=== PATIENT | female | born 1940 | race Caucasian/White ===

== ENCOUNTER 2017-08-30 09:15 | Inpatient (IN) | payer OTHER ==
--- NOTE | 2017-08-30 09:31 | PDOC ---
History of Present Illness - General History Source: Patient Exam Limitations: No Limitations - History of Present Illness Initial Comments: 08/30/17 10:00 Patient is a 77 year old female with a significant past medical history of HTN, Hyperlipidemia, Anticoagulant usage, who presents to the ED with complaints of vomiting blood that began last night. As per daughter in law patient began vomiting bright red blood last night suddenly. Patient reports experiencing episodes of chest pain and dizziness secondary to vomiting blood. She reports experiences multiple episodes of burgundy stool. Patient states she takes tylenol almost every day. Patient reports having no hx of gastrointestinal bleeding. Denies fever, chills. Denies nausea. Denies dysuria. Denies any other symptoms. Allergies Social history: No smoking. No alcohol. No illicit drugs. Surgical history: Endoscopy PMD: Dr. Riaz Hiceky. <Td Krishnan - Last Filed: 08/30/17 11:25> <Cande Cabrales - Last Filed: 08/30/17 11:31> - General Chief Complaint: Vomiting Blood Stated Complaint: VOMITING Time Seen by Provider: 08/30/17 09:24 Past History <Td Krishnan - Last Filed: 08/30/17 11:25> - Past Medical History Cardiac Disorders: Yes (?) HTN: Yes Hypercholesterolemia: Yes - Surgical History Cholecystectomy: Yes - Suicide/Smoking/Psychosocial Hx Smoking History: Never smoked Hx Alcohol Use: No Drug/Substance Use Hx: No Substance Use Type: None <Cande Cabrales - Last Filed: 08/30/17 11:31> - Past Medical History Allergies/Adverse Reactions: Allergies Allergy/AdvReac Type Severity Reaction Status Date / Time No Known Allergies Allergy Verified 08/30/17 10:09 Home Medications: Ambulatory Orders Cholecalciferol (Vitamin D3) [Vitamin D3 -] 0 unit PO WEEKLY 08/30/17 Ezetimibe [Zetia -] 10 mg PO DAILY 08/30/17 Nebivolol [Bystolic -] 10 mg PO DAILY 08/30/17 Review of Systems - Review of Systems Able to Perform ROS?: Yes Comments:: 08/30/17 10:00 GENERAL/CONSTITUTIONAL: No fever or chills. No weakness. HEAD, EYES, EARS, NOSE AND THROAT: No change in vision. No ear pain or discharge. No sore throat. GASTROINTESTINAL: No nausea, vomiting, diarrhea or constipation. GENITOURINARY: No dysuria, frequency, or change in urination. CARDIOVASCULAR: No chest pain or shortness of breath. RESPIRATORY: No cough, wheezing, or hemoptysis. MUSCULOSKELETAL: No joint or muscle swelling or pain. No neck or back pain. SKIN: No rash NEUROLOGIC: No headache, vertigo, loss of consciousness, or change in strength/ sensation. ENDOCRINE: No increased thirst. No abnormal weight change. HEMATOLOGIC/LYMPHATIC: No anemia, easy bleeding, or history of blood clots. ALLERGIC/IMMUNOLOGIC: No hives or skin allergy. All Other Systems: Reviewed and Negative <Td Krishnan - Last Filed: 08/30/17 11:25> *Physical Exam - Vital Signs Last Vital Signs Temp Pulse Resp BP Pulse Ox 97.8 F 73 20 140/58 100 08/30/17 09:18 08/30/17 09:18 08/30/17 09:18 08/30/17 09:18 08/30/17 09:18 - Physical Exam Comments: 08/30/17 10:00 GENERAL: +Near Syncope. +General pale coloration. Awake, alert, and fully oriented, HEAD: No signs of trauma EYES: +Pale Conjunctiva PERRLA, EOMI, sclera anicteric, ENT: Auricles normal inspection, hearing grossly normal, nares patent, oropharynx clear without exudates. Moist mucosa NECK: Normal ROM, supple, no lymphadenopathy, JVD, or masses LUNGS: Breath sounds equal, clear to auscultation bilaterally. No wheezes, and no crackles HEART: Regular rate and rhythm, normal S1 and S2, no murmurs, rubs or gallops ABDOMEN: +Diffuse Upper quadrant epigastric tenderness. Soft, nontender, normoactive bowel sounds. No guarding, no rebound. No masses BUTTOCK: +One small external hemorrhoid. +Black stool. EXTREMITIES: Normal range of motion, no edema. No clubbing or cyanosis. No cords, erythema, or tenderness NEUROLOGICAL: Cranial nerves II through XII grossly intact. Normal speech, normal gait SKIN: Warm, Dry, normal turgor, no rashes or lesions noted. <Td Krishnan - Last Filed: 08/30/17 11:25> - Vital Signs Last Vital Signs Temp Pulse Resp BP Pulse Ox 97.8 F 73 20 140/58 100 08/30/17 09:18 08/30/17 09:18 08/30/17 09:18 08/30/17 09:18 08/30/17 09:18 <Cande Cabrales - Last Filed: 08/30/17 11:31> Heart Score/ECG Review - ECG Intrepretation Comment:: 08/30/17 09:57 sinus at 70, nl axis, nl interval, t wave flattening, no acute changes <Cande Cabrales - Last Filed: 08/30/17 11:31> ED Treatment Course - LABORATORY CBC & Chemistry Diagram: 08/30/17 09:35 08/30/17 09:35 - ADDITIONAL ORDERS Additional order review: 08/30/17 09:35 RBC 3.18 L MCV 90.3 MCHC 32.9 RDW 13.7 MPV 9.0 Neutrophils % 82.2 Lymphocytes % 13.4 Monocytes % 4.1 Eosinophils % 0.1 Basophils % 0.2 <Td Krishnan - Last Filed: 08/30/17 11:25> - LABORATORY CBC & Chemistry Diagram: 08/30/17 09:35 08/30/17 09:35 <Cande Cabrales - Last Filed: 08/30/17 11:31> Medical Decision Making - Medical Decision Making 08/30/17 11:[address] Jenkins @10:54am. Awaiting call back. Over head paged Dr. Jenkins, second page @11:23am. Awaiting call back. Called Dr. Thaddeus Lucas @11:28am. Awaiting call back. <Td Krishnan - Last Filed: 08/30/17 11:25> - Critical Care Time Total Critical Care Time (minutes): 30 Critical Care Statement: The care of this patient involved high complexity decision making to prevent further life threatening deterioration of the patient 's condition and/or to evaluate & treat vital organ system(s) failure or risk of failure. - Medical Decision Making 08/30/17 09:50 a/p: 77yo female with epigastric pain, hematemesis x multiple episodes last night and melena today -concern for UGIB most likely from gastritis/ulcer -labs -lactate -type and screen -npo -ivf hydration -ekg -protonix -will need admission and GI eval. 08/30/17 11:19 family updated on the plan, per the son, who is at the bedside, the patient has seen Dr. Lucas in the past from GI. call placed to Dr. Jenkins 08/30/17 11:[address] Jenknis who accepts the patient to his service. NPO status. <Cande Cabrales - Last Filed: 08/30/17 11:31> *DC/Admit/Observation/Transfer - Attestations Scribe Attestion: 08/30/17 10:01 Documentation prepared by Td Krishnan, acting as neuropsychology medical consultant for Cande Cabrales DO. <Td Krishnan - Last Filed: 08/30/17 11:25> - Discharge Dispostion Admit: Yes - Attestations Physician Attestion: 08/30/17 11:30 I, Dr. Cande Cabrales DO, attest that this document has been prepared under my direction and personally reviewed by me in its entirety. I further attest, that it accurately reflects all work, treatment, procedures and medical decision -making performed by me. <Cande Cabrales - Last Filed: 08/30/17 11:31> Diagnosis at time of Disposition: Upper gastrointestinal bleeding - Discharge Dispostion Condition at time of disposition: Guarded
[2017-08-30] MEDS ORDERED: ONDANSETRON 4 MG/2 ML VIAL IVPUSH ONE (09:47)
[2017-08-30] MEDS ORDERED: PANTOPRAZOLE SODIUM 80 MG in SODIUM CHLORIDE 100 ML IVPB ONE (09:47)
[2017-08-30] MEDS ORDERED: SODIUM CHLORIDE 0.9% 1000 ML INFUS.BAG IV ONE (09:47)
[2017-08-30 09:49] LABS: BASOPHIL 0.2 % (0-2.0); EOSINOPHIL 0.1 % (0-4.5); MCH 29.7 pg (25.7-33.7); MCHC 32.9 g/dl (32.0-36.0); MEAN CELL VOLUME 90.3 fl (80-96); NEUTROPHILS 82.2 % (42.8-82.8); PLATELET COUNT 288 K/MM3 (134-434); RDW 13.7 % (11.6-15.6); WHITE BLOOD COUNT 11.1 K/mm3 (4.0-10.0)
[2017-08-30] MEDS ORDERED: PANTOPRAZOLE SODIUM 200 ML IVPB ONE (09:54)
[2017-08-30 10:11] LABS: ALBUMIN 3.6 g/dl (3.4-5.0); ANION GAP 6 (8-16); BILIRUBIN,TOTAL 0.2 mg/dL (0.2-1.0); CALCIUM 8.8 mg/dL (8.5-10.1); CO2 27 mmol/L (21-32); CREATININE 1.3 mg/dL (0.55-1.02); GLUCOSE,RANDOM 115 mg/dL (74-106); MAGNESIUM 1.9 mg/dL (1.8-2.4); SGOT/AST 10 U/L (15-37); SGPT/ALT 17 U/L (12-78)
[2017-08-30 10:14] LABS: ALK PHOS 65 U/L (45-117); CPK 66 IU/L (26-192); TROPONIN I < 0.02 ng/ml (0.00-0.05)
[2017-08-30 10:24] LABS: INR 1.26 (0.82-1.09); PROTHROMBIN TIME (PATIENT) 13.9 SEC (9.98-11.88)
[2017-08-30 10:26] LABS: ACTIVATED PTT 30.2 SECONDS (26.9-34.4)
--- NOTE | 2017-08-30 13:06 | EKG ---
Test Reason : Blood Pressure : / mmHG Vent. Rate : 070 BPM Atrial Rate : 070 BPM P-R Int : 146 ms QRS Dur : 082 ms QT Int : 426 ms P-R-T Axes : 057 007 039 degrees QTc Int : 460 ms NORMAL SINUS RHYTHM POSSIBLE LEFT ATRIAL ENLARGEMENT LOW VOLTAGE QRS BORDERLINE ECG NO PREVIOUS ECGS AVAILABLE Confirmed by JULIA STILL MD ([id number]) on 08/30/2017 1:06:01 PM Referred By: Confirmed By:JULIA STILL MD
[2017-08-30 13:52] VITALS: BMI 28.5
[2017-08-30] MEDS ORDERED: FLU VACCINE QUAD 60 MCG/0.5 ML (MDV 17-18) IM ONE (15:00)
[2017-08-30] MEDS: DEXTROSE 5%-NORMAL SALINE 1,000 ML IV SCH (15:50)
[2017-08-30] MEDS ORDERED: ACETAMINOPHEN 650 MG SUPP.RECT PR PRN (17:12)
[2017-08-30] MEDS ORDERED: ONDANSETRON 4 MG/2 ML VIAL IVPUSH PRN (17:12)
--- NOTE | 2017-08-30 19:16 | CON.GI ---
Consult Consult Specialty:: GI Referred by:: Dr Hill Reason for Consultation:: hematemesis - History of Present Illness Chief Complaint: hematemesis History of Present Illness: 77 F with h/o HTN, HLD admitted with hematemesis x 24 hours. Patient states she awoke from sleep and ran to the toilet and "filled it with blood" She denies abdominal pain. On admission she had Hgb 9.4 and an INR of 1.26. She is on ASA 81 wihch she states she only takes when she remembers. She states she had some chest discomfort and lightheaded sensation. She is comfortable and is no longer bleeding - History Source History Provided By: Patient Limitations to Obtaining History: Language Barrier (electrostatic painter present (Nurse)) - Past Medical History Cardio/Vascular: Yes: HTN, Hyperlipdemia ...: No - Alcohol/Substance Use Hx Alcohol Use: No - Smoking History Smoking history: Never smoked Home Medications - Allergies Allergies/Adverse Reactions: Allergies Allergy/AdvReac Type Severity Reaction Status Date / Time No Known Allergies Allergy Verified 08/30/17 10:09 - Home Medications Home Medications: Ambulatory Orders Acetaminophen [Tylenol .Extra-Strength -] 500 mg PO PRN PRN 08/30/17 Aspirin [ASA -] 81 mg PO DAILY 08/30/17 Cholecalciferol (Vitamin D3) [Vitamin D3 -] 0 unit PO WEEKLY 08/30/17 Ezetimibe [Zetia -] 10 mg PO DAILY 08/30/17 Nebivolol [Bystolic -] 10 mg PO DAILY 08/30/17 Physical Exam-GI Vital Signs: Vital Signs Temperature 98.6 F 08/30/17 13:51 Pulse Rate 75 08/30/17 13:51 Respiratory Rate 20 08/30/17 13:51 Blood Pressure 129/67 08/30/17 13:51 O2 Sat by Pulse Oximetry (%) 100 08/30/17 09:18 Constitutional: Yes: Well Nourished, No Distress HENT: Yes: Normocephalic Cardiovascular: Yes: Regular Rate and Rhythm Respiratory: Yes: CTA Bilaterally Labs: INR, PTT INR 1.26 (0.82-1.09) H 08/30/17 09:35 Assessment/Plan 77 F sp/sp admitted with presumed UGIB with elevated BUN and mildly deranged INR. Liekly etiology Teresa Banks tear. No bleeding at this time and hemodynamically stable,. No urgent endoscopy necessary but will do EGD in AM to better assess For now, protonix drip Stat CBC and transfuse 1 unit of Hgb <8 U/S abdomen as it is not clear why she has elevated INR. Repeat now. If elevated give 2 units of FFP. I did colon/EGD on her 5 years ago-will check office records.
[2017-08-30 21:44] LABS: INR 1.27 (0.82-1.09)
[2017-08-30 22:02] LABS: MCH 30.1 pg (25.7-33.7); MCHC 33.4 g/dl (32.0-36.0); MEAN CELL VOLUME 90.2 fl (80-96); MEAN PLT VOLUME 9.3 fl (7.5-11.1); PLATELET COUNT 231 K/MM3 (134-434); RDW 13.6 % (11.6-15.6); WHITE BLOOD COUNT 7.7 K/mm3 (4.0-10.0)
--- NOTE | 2017-08-31 08:35 | PN ---
Progress Note (short form) - Note Progress Note: ADDENDUM: S/P EGD Ulcerated mass noted on angulus No active bleeding Biopsies taken. Suspect malignancy Rec: Protonix 40 BID FFP 2 units now as INR still mildly deranged Surgery consult Oncology consult Clear liquid diet CT chest/abdomen/pelvis ordered IV fluid hydration
[2017-08-31] MEDS ORDERED: PANTOPRAZOLE SODIUM 40 MG in SODIUM CHLORIDE 100 ML IVPB SCH (10:00)
[2017-08-31 10:01] LABS: BASOPHIL 0.5 % (0-2.0); EOSINOPHIL 1.3 % (0-4.5); MCH 30.5 pg (25.7-33.7); MCHC 33.5 g/dl (32.0-36.0); MEAN CELL VOLUME 90.9 fl (80-96); MEAN PLT VOLUME 9.1 fl (7.5-11.1); PLATELET COUNT 227 K/MM3 (134-434); RDW 13.9 % (11.6-15.6); WHITE BLOOD COUNT 7.6 K/mm3 (4.0-10.0)
[2017-08-31] MEDS ORDERED: PT OWN MED DRAWER 7, Y5N ONE ×2 (10:04→20:58)
[2017-08-31] MEDS: PANTOPRAZOLE SODIUM 40 MG in SODIUM CHLORIDE 100 ML IVPB SCH ×2 (10:06→21:09)
[2017-08-31 10:54] LABS: ALBUMIN 3.2 g/dl (3.4-5.0); ALK PHOS 55 U/L (45-117); ANION GAP 7 (8-16); CALCIUM 8.3 mg/dL (8.5-10.1); CO2 24 mmol/L (21-32); CREATININE 1.1 mg/dL (0.55-1.02); GLUCOSE,RANDOM 96 mg/dL (74-106); SGOT/AST 14 U/L (15-37); SGPT/ALT 14 U/L (12-78); TOT PROT 6.1 g/dl (6.4-8.2)
--- NOTE | 2017-08-31 11:06 | HP ---
Admitting History and Physical - Primary Care Physician PCP: Brenda Jenkins - Admission Chief Complaint: GI BLEED History of Present Illness: PATIENT WITH POSITIVE RECTAL BLEED HERE TODAY WITH GI BLEED PROGRESSIVELY WORSENED, DISCUSSED WITH GI TO HAVE POSSIBLE COLONOSCOPY, POSITIVE BLOOD WHEN SHE VOMITED. H/P HTN/LIPIDEMIA History Source: Patient Limitations to Obtaining History: Poor Historian - Past Medical History Cardiovascular: Yes: HTN, Hyperlipdemia ...: No - Smoking History Smoking history: Never smoked - Alcohol/Substance Use Hx Alcohol Use: No Home Medications - Allergies Allergies/Adverse Reactions: Allergies Allergy/AdvReac Type Severity Reaction Status Date / Time No Known Allergies Allergy Verified 08/30/17 10:09 - Home Medications Home Medications: Ambulatory Orders Acetaminophen [Tylenol .Extra-Strength -] 500 mg PO PRN PRN 08/30/17 Aspirin [ASA -] 81 mg PO DAILY 08/30/17 Cholecalciferol (Vitamin D3) [Vitamin D3 -] 0 unit PO WEEKLY 08/30/17 Ezetimibe [Zetia -] 10 mg PO DAILY 08/30/17 Nebivolol [Bystolic -] 10 mg PO DAILY 08/30/17 Review of Systems - Review of Systems Constitutional: reports: Loss of Appetite, Malaise Eyes: reports: No Symptoms HENT: reports: No Symptoms Neck: reports: No Symptoms Cardiovascular: reports: No Symptoms Respiratory: reports: No Symptoms Gastrointestinal: reports: Rectal Bleeding, Vomiting Blood Genitourinary: reports: No Symptoms Breasts: reports: No Symptoms Reported Musculoskeletal: reports: No Symptoms Neurological: reports: Pre-Existing Deficit Endocrine: reports: No Symptoms Hematology/Lymphatic: reports: No Symptoms Psychiatric: reports: No Symptoms Physical Examination Vital Signs: Vital Signs Temperature 98.4 F 08/31/17 08:08 Pulse Rate 61 08/31/17 08:55 Respiratory Rate 18 08/31/17 08:55 Blood Pressure 135/67 08/31/17 08:55 O2 Sat by Pulse Oximetry (%) 100 08/31/17 08:55 Constitutional: Yes: Mild Distress Eyes: Yes: WNL HENT: Yes: WNL Neck: Yes: WNL Cardiovascular: Yes: WNL Respiratory: Yes: WNL Gastrointestinal: Yes: Tenderness, Rebound Renal/: Yes: WNL Musculoskeletal: Yes: WNL Extremities: Yes: WNL Edema: No Peripheral Pulses WNL: Yes Integumentary: Yes: WNL Wound/Incision: Yes: Clean/Dry Neurological: Yes: WNL ...Motor Strength: WNL Psychiatric: Yes: WNL Labs: CBC, BMP 08/31/17 09:30 Imaging - Results Cat Scan: Pending Problem List - Problems (1) Upper gastrointestinal bleeding Code(s): K92.2 - GASTROINTESTINAL HEMORRHAGE, UNSPECIFIED (2) HTN (hypertension) Code(s): I10 - ESSENTIAL (PRIMARY) HYPERTENSION Qualifiers: Hypertension type: essential hypertension Qualified Code(s): I10 - Essential (primary) hypertension; I10 - Essential (primary) hypertension; I10 - Essential (primary) hypertension Assessment/Plan GI WORKUP IN PROGRESS IVF PPI OOB TO CHAIR DVT PROPHYLAXIS SCD
[2017-08-31] MEDS: DEXTROSE 5%-NORMAL SALINE 1,000 ML IV SCH (21:08)
[2017-09-01 07:31] LABS: MCH 30.6 pg (25.7-33.7); MCHC 34.1 g/dl (32.0-36.0); MEAN CELL VOLUME 89.7 fl (80-96); MEAN PLT VOLUME 9.1 fl (7.5-11.1); PLATELET COUNT 232 K/MM3 (134-434); RDW 13.6 % (11.6-15.6); WHITE BLOOD COUNT 7.7 K/mm3 (4.0-10.0)
--- NOTE | 2017-09-01 08:14 | PN ---
Progress Note (short form) - Note Progress Note: Post op day#1.S/P EGD under TIVA uneventful.Patient stable.No any anesthesia related problem.Patient DC from the anesthesia care.
[2017-09-01] MEDS ORDERED: PT OWN MED DRAWER 7, Y5N ONE (09:03)
[2017-09-01] MEDS: PANTOPRAZOLE SODIUM 40 MG in SODIUM CHLORIDE 100 ML IVPB SCH (09:06)
[2017-09-01 11:30] VITALS: BP 121/60; PULSE 70; TEMP 98.1
[2017-09-01] MEDS: DEXTROSE 5%-NORMAL SALINE 1,000 ML IV SCH (11:41)
--- NOTE | 2017-09-01 11:57 | DS ---
Physical Examination Vital Signs: Vital Signs Temperature 98.1 F 09/01/17 09:00 Pulse Rate 70 09/01/17 09:00 Respiratory Rate 18 09/01/17 09:00 Blood Pressure 121/60 09/01/17 09:00 O2 Sat by Pulse Oximetry (%) 96 08/31/17 21:00 Constitutional: Yes: No Distress Eyes: Yes: WNL HENT: Yes: WNL Neck: Yes: WNL Cardiovascular: Yes: WNL Respiratory: Yes: WNL Gastrointestinal: Yes: WNL Renal/: Yes: WNL Musculoskeletal: Yes: WNL Extremities: Yes: WNL Edema: No Peripheral Pulses WNL: Yes Integumentary: Yes: WNL Wound/Incision: Yes: Clean/Dry Neurological: Yes: WNL ...Motor Strength: WNL Psychiatric: Yes: WNL Labs: CBC, BMP 09/01/17 07:00 08/31/17 09:30 Discharge Summary Reason For Visit: UPPER GASTROINTESTINAL HEMORRHAGE Current Active Problems HTN (hypertension) (Acute) Upper gastrointestinal bleeding (Acute) Procedures: Principal: egd Other Procedures: ct scan Hospital Course: gi bleed, egd showed antram mass, biopst done, await results, transfuse prbc as needed. follow up with pmd in 4 days Condition: Guarded - Instructions Diet, Activity, Other Instructions: low sodium See Dr Hill MonSeptember 06 9:30am Referrals: Riaz Hill [Primary Care Provider] - Disposition: VNS/HOME HEALTH CARE - Home Medications Comprehensive Discharge Medication List: Ambulatory Orders Acetaminophen Suppository [Tylenol .Suppository -] 650 mg ME Q6H PRN #0 supp.rect 09/01/17 Acetaminophen [Tylenol .Extra-Strength -] 500 mg PO PRN PRN #0 tab 09/01/17 Cholecalciferol (Vitamin D3) [Vitamin D -] 0 unit PO WEEKLY #0 tab 09/01/17 Ezetimibe [Zetia -] 10 mg PO DAILY #0 tab 09/01/17 Nebivolol [Bystolic -] 10 mg PO DAILY #0 tab 09/01/17 Omeprazole 20 mg PO DAILY #30 capsule. 09/01/17
--- NOTE | 2017-09-01 14:30 | PATH ---
Surgical Pathology Report Patient Name: DEMI GAITAN [facility]. Rec. #: [id number] /Age/Gender: 1940 (Age: 77) / F Account: [id number] Location: [facility]/SURG Taken: 08/31/2017 Received: 08/31/2017 Reported: 09/01/2017 Physicians: Ranulfo Early M.D. Specimen(s) Received BX ULCERATED MASS ON THE ANGULARUS Clinical History Upper GI bleeding Ulcerated mass in angularis Final Diagnosis STOMACH, ULCERATED MASS ON ANGULARIS, BIOPSY: SEVERE CHRONIC ACTIVE GASTRITIS. NO CARCINOMA IDENTIFIED. IMMUNOSTAIN FOR H. PYLORI IS NEGATIVE. Comment: Recommend correlation with clinical findings and follow up as clinically indicated. Electronically Signed Riaz Felder M.D. Gross Description Received in formalin, labeled "biopsy ulcerated mass on angularis" are 4 iraheta, irregular portions of soft tissue ranging from 0.3-0.4 cm. in greatest dimension. The specimens are submitted in toto in one cassette. /08/31/201708/31/2017
--- NOTE | 2017-09-07 11:50 | PN ---
Progress Note (short form) - Note Progress Note: DIAGNOSIS ADDENDUM: ACUTE BLOOD LOSS ANEMIA Problem List - Problems (1) Upper gastrointestinal bleeding Code(s): K92.2 - GASTROINTESTINAL HEMORRHAGE, UNSPECIFIED (2) HTN (hypertension) Code(s): I10 - ESSENTIAL (PRIMARY) HYPERTENSION Qualifiers: Hypertension type: essential hypertension Qualified Code(s): I10 - Essential (primary) hypertension; I10 - Essential (primary) hypertension; I10 - Essential (primary) hypertension
== END 2017-09-01 13:06 | disposition home health service (06) | DRG 378 ==
LOC: JER 09:15 → JERBED 11:31 → J8W 12:45
PROVIDERS: ADMIT Family Medicine; ATTEND Family Medicine
PROC: 30233H1 Transfusion of Nonautologous Whole Blood into Peripheral Vein, Percutaneous Approach (ICD-10-PCS; principal; 2017-08-30)
PROC: 30233K1 Transfusion of Nonautologous Frozen Plasma into Peripheral Vein, Percutaneous Approach (ICD-10-PCS; 2017-08-31)
PROC: 0DD68ZX Extraction of Stomach, Via Natural or Artificial Opening Endoscopic, Diagnostic (ICD-10-PCS; 2017-08-31)
DX: K92.2 Gastrointestinal hemorrhage, unspecified (principal); D62 Acute posthemorrhagic anemia; K31.89 Other diseases of stomach and duodenum; K25.9 Gastric ulcer, unspecified as acute or chronic, without hemorrhage or perforation; I10 Essential (primary) hypertension; E78.5 Hyperlipidemia, unspecified
CPT/HCPCS: 36415; 36430; 71010-TC; 71260-TC; 74177-TC; 80053; 82272; 83605; 83690; 83735; 84484; 85025; 85027; 85610; 85730; 86850; 86900; 86901; 86922; 88305-TC; 90688; 93005; 93010; 99284-25; P9017; P9038; P9058; Q9967

== ENCOUNTER 2022-08-02 16:59 | Emergency (ER) | payer OTHER ==
[2022-08-02] MEDS ORDERED: SODIUM CHLORIDE 0.9% 500 ML INFUS.BAG IV ONE (17:50)
[2022-08-02] MEDS ORDERED: ACETAMINOPHEN 1000 MG/100 ML BAG IVPB ONE (17:50)
[2022-08-02] MEDS ORDERED: METOCLOPRAMIDE HCL INJECTION 10 MG/2 ML VIAL IVPB ONE (17:50)
[2022-08-02 17:53] VITALS: BP 162/65; PULSE 74; RESP 18; TEMP 97.9; BMI 25.7
[2022-08-02] MEDS ORDERED: ACETAMINOPHEN INJECTION 100 ML IVPB ONE (18:27)
[2022-08-02] MEDS ORDERED: METOCLOPRAMIDE HCL INJECTION 10 MG/2 ML VIAL ONE (18:27)
[2022-08-02 21:44] LABS: EPI CELLS 1 /uL (0-25.1); HYALINE CASTS 0 /uL (0-3.1); PH,URINE 7.5 (5.0-8.0); URINE APPEARANCE CLEAR; URINE BACTERIA 0 /uL (0-1359); URINE BILIRUBIN NEGATIVE (NEGATIVE); URINE COLOR YELLOW; URINE GLUCOSE (UA) NEGATIVE (NEGATIVE); URINE KETONE NEGATIVE (NEGATIVE); URINE LEUK ESTERASE NEGATIVE (NEGATIVE); URINE NITRITE NEGATIVE (NEGATIVE); URINE PROTEIN NEGATIVE (NEGATIVE); URINE RBC 10 /uL (0-23.9); URINE UROBILINOGEN 0.2 mg/dL (0.2-1.0); URINE WBC 4 /uL (0-25.8)
== END 2022-08-02 22:14 | disposition home or self-care (01) ==
LOC: JER 16:59
PROC: 3E033GC Introduction of Other Therapeutic Substance into Peripheral Vein, Percutaneous Approach (ICD-10-PCS; principal; 2022-08-02)
DX: R51.9 Headache, unspecified (principal)
CPT/HCPCS: 70450-TC; 81003; 93005; 93010; 96374; 96375; 99285-25